=== PATIENT | male | born 1945 | race African-American/Black ===

== ENCOUNTER 2018-06-13 13:03 | Emergency (ER) | payer OTHER, MEDICAID ==
[~2018-06-13] VITALS: Ht 180.3 cm; Wt 90.7 kg
[~2018-06-13 13:03] MED LIST: ANUSOL-HC30 GM RC; IBUPROFEN600 MG ORAL; NKM; NORCO 5-325 TA1 EACH ORAL
[2018-06-13 13:16] VITALS: BP 133/81
--- NOTE | 2018-06-13 13:16 | NUR ---
ED Nurse Note: Pt came in from MD appt due to scrotal swelling x 3-4 days. No redness noted. Noted to have atrophy on the right side. No tenderness noted. No complaints of pain. No penile discharge. A + O x4. AMbulatory.
--- NOTE | 2018-06-13 13:31 | NUR ---
ED Nurse Note: Urine has been collected and sent to lab.
--- NOTE | 2018-06-13 13:37 | NUR ---
ED Nurse Note: wafer fab technician called about the order.
[2018-06-13 13:53] LABS: APPEARANCE,URINE VERY CLOUDY; BILIRUBIN, URINE NEGATIVE (NEGATIVE); GLUCOSE, URINE (UA) NEGATIVE (NEGATIVE); KETONES,URINE 1+ (NEGATIVE); LEUKOCYTE ESTERASE ,URINE 2+ (NEGATIVE); NITRITE,URINE POSITIVE (NEGATIVE); PH,URINE 6 (4.5-8.0); PROTEIN,URINE 1+ (NEGATIVE); UROBILINOGEN,URINE NORMAL MG/DL (0.0-1.0)
[2018-06-13 13:54] LABS: COLOR,URINE YELLOW
--- NOTE | 2018-06-13 13:54 | Emergency Room Report ---
History of Present Illness General Chief Complaint: Male Urogenital Problems Source: Patient Present Illness HPI 73-year-old male patient presents the ER complaining of testicular pain and swelling for the past 4 days. Reports swelling symptoms have been present for "a while" however they became painful with increasing intensity during the past 4 days. Denies dysuria. Reports history of BPH. Denies hematuria. Denies penile discharge pain. Denies penis pain. Denies fever, chest pain, shortness of breath. Denies other acute aggravating or relieving factors. states was at his physician's office earlier today and was told to come to the ER for imaging because he would not be able to have imaging done until next week. Denies recent sexual activity. Allergies: Coded Allergies: NO KNOWN DRUG ALLERGIES (Verified Allergy, Unknown, 04/04/15) Patient History Past Medical History: see triage record Reviewed Nursing Documentation: PMH: Agreed; PSxH: Agreed Nursing Documentation-PMH Past Medical History: No Stated History Review of Systems All Other Systems: negative except mentioned in HPI Physical Exam Vital Signs Date Time Temp Pulse Resp B/P (MAP) Pulse Ox O2 Delivery O2 Flow Rate FiO2 06/13/18 13:07 98.4 75 16 133/81 96 Room Air Sp02 EP Interpretation: reviewed, normal General Appearance: well appearing, no apparent distress, alert, GCS 15, non- toxic Head: normocephalic, atraumatic Eyes: bilateral eye normal inspection, bilateral eye PERRL ENT: hearing grossly normal, normal pharynx, no angioedema, normal voice, uvula midline, moist mucus membranes Neck: full range of motion Respiratory: lungs clear, normal breath sounds, no rhonchi, no respiratory distress, no accessory muscle use, no wheezing, speaking full sentences Cardiovascular #1: regular rate, rhythm, no edema Genitourinary: no CVA tenderness, penis normal, other - scrotal swelling, no erythema, no blue dot; "bag of worms: right sided; no hernia bilaterally Musculoskeletal: back normal, digits/nails normal, gait/station normal, normal range of motion, non-tender Neurologic: alert, oriented x3, responsive, motor strength/tone normal, sensory intact Medical Decision Making PA Attestation Dr. Garay is my supervising Physician whom patient management has been discussed with. Diagnostic Impression: Primary Impression: Orchitis Additional Impressions: Hydrocele Varicocele ER Course Pt. presents to the ED c/o testicular pain. Ddx considered but are not limited to testicular torsion, epididymitis, UTI, testicular cyst, varicocele, hydrocele, inguinal hernia, orchitis. Vital signs: are WNL, pt. is afebrile ER COURSE: Provided with Tylenol for pain. UA shows positive WBCS and nitrites likely infection. Likely orchitis. Testicular US shows bilateral hydrocele worse on the right side, right-sided varicocele, increased blood flow to the right side, no torsion per the chemistry laboratory technician. Follow-up with specialist. Follow with primary care provider. Discuss right-sided varicocele need for further imaging. Keep testicles elevated. ER precautions given. Discussed with Dr. Garay, will discharge patient home with Bactrim. Advised patient to discontinue medication if he begins to develop rash or skin findings consistent with SJS. DISCHARGE: At this time pt. is stable for d/c to home. Patient resting comfortably no acute distress, nontoxic-appearing, okay for outpatient follow-up. Will provide printed patient care instructions, and any necessary prescriptions. Care plan and follow up instructions have been discussed with the patient prior to discharge. Followup with tin whiz machine operator in 3 -5 days. Followup with urologist. Take medications as directed. Patient questions asked and answered. ER precautions given, patient instructed to return to ER immediately for any new or worsening of symptoms including but not limited to fever, nausea, vomiting, worsening of pain. - Please note that this Emergency Department Report was dictated using [employer] technology software, occasionally this can lead to erroneous entry secondary to interpretation by the dictation equipment. Labs Test 06/13/18 13:21 Urine Color Yellow Urine Appearance Very cloudy Urine pH 6 (4.5-8.0) Urine Specific [place] 1.020 (1.005-1.035) Urine Protein 1+ (NEGATIVE) Urine Glucose (UA) Negative (NEGATIVE) Urine Ketones 1+ (NEGATIVE) Urine Blood 1+ (NEGATIVE) Urine Nitrite Positive (NEGATIVE) Urine Bilirubin Negative (NEGATIVE) Urine Urobilinogen Normal MG/DL (0.0-1.0) Urine Leukocyte Esterase 2+ (NEGATIVE) Urine RBC 0-2 /HPF (0 - 0) Urine WBC 15-20 /HPF (0 - 0) Urine Squamous Epithelial Cells Few /LPF (NONE/OCC) Urine Bacteria Many /HPF (NONE) CT/MRI/US Diagnostic Results CT/MRI/US Diagnostic Results : Imaging Test Ordered: Testicular ultrasound Impression Per chemistry laboratory technician, large right-sided hydrocele and small hydrocele on left side, varicocele on right side, increased blood flow to right testes, bilateral epididymis normal Last Vital Signs Date Time Temp Pulse Resp B/P (MAP) Pulse Ox O2 Delivery O2 Flow Rate FiO2 06/13/18 13:16 98.4 75 16 133/81 96 Room Air Status: improved Disposition: HOME, SELF-CARE Condition: Stable Scripts Acetaminophen* (TYLENOL EXTRA STRENGTH*) 500 Mg Tablet 500 MG ORAL Q8H PRN for Prn Headache/Temp > 101, #30 TAB 0 Refills Prov: Hipolito Kramer 06/13/18 Trimethoprim/Sulfamethoxazole 160/800* (BACTRIM DS TABLET*) 1 Each Tablet 1 TAB ORAL TWICE A DAY for 10 Days, #20 TAB Prov: Hipolito Kramer 06/13/18 Patient Instructions: Hydrocele, Adult, Orchitis, Varicocele Additional Instructions: Followup with primary care provider in 3 -5 days. Discussed need for further abdominal imaging related to right-sided varicocele. Discussed referral to specialist. Followup with referral. Keep testicles elevated with a towel. Take medications as directed. Patient questions asked and answered. ER precautions given, patient instructed to return to ER immediately for any new or worsening of symptoms. Hipolito Kramer Jun 13, 2018 13:54
--- NOTE | 2018-06-13 14:06 | NUR ---
ED Nurse Note: Pt went down to get US.
--- NOTE | 2018-06-13 14:56 | NUR ---
ED Nurse Note: Pt came back from US.
--- NOTE | 2018-06-13 15:13 | Diagnostic Imaging Report ---
Indications: Scrotal pain and swelling x4 days, right testicular pain Technique: Grayscale and duplex images of the scrotum Comparison: none Findings:The right testicle measures for 0.4cm in length. Demonstrate somewhat striated parenchymal pattern. There is increased blood flow demonstrated as compared to the left testicle. The epididymal head is slightly prominent and hyperemic, although appears less hyperemic than the testicle. There is a right hydrocele with debris. There is right varicocele. The left testicle measures 3.8 cm in length. It demonstrates normal echogenicity and normal Doppler flow. Normal epididymis. There is a small hydrocele Impression: Findings compatible with right-sided orchitis Moderate right and small left hydroceles Negative for evidence of testicular torsion
[2018-06-13] MEDS ORDERED: TYLENOL EXTRA500 MG ORAL (15:15)
[2018-06-13] MEDS ORDERED: BACTRIM DS TAB1 EAC1 ORAL (15:15)
[2018-06-13 15:24] VITALS: BP 128/78
[2018-06-13 15:25] VITALS: BP 133/81
--- NOTE | 2018-06-13 15:25 | NUR ---
ED Nurse Note: Pt is clear to be discharged by ERMD. Discharge paper and prescription given, pt verbalized understanding of discharge instruction. Aox4, VSS. Wristband removed. Pt ambulated out with steady gait with all belongings.
--- NOTE | 2018-06-16 13:00 | Emergency Room Report ---
Physical Exam Vital Signs Date Time Temp Pulse Resp B/P (MAP) Pulse Ox O2 Delivery O2 Flow Rate FiO2 06/13/18 13:07 98.4 75 16 133/81 96 Room Air Medical Decision Making Diagnostic Impression: Primary Impression: Orchitis Additional Impressions: Varicocele Hydrocele ER Course . .Patient was noted to have positive urine culture for E. coli which is resistant to Bactrim. Prescription for Keflex was called into the patient's preferred pharmacy [facility] on [address]. Patient was advised to continue follow-up with urology. Last Vital Signs Date Time Temp Pulse Resp B/P (MAP) Pulse Ox O2 Delivery O2 Flow Rate FiO2 06/13/18 15:25 98.4 75 16 133/81 96 Room Air Disposition: HOME, SELF-CARE Condition: Stable Scripts Acetaminophen* (TYLENOL EXTRA STRENGTH*) 500 Mg Tablet 500 MG ORAL Q8H PRN for Prn Headache/Temp > 101, #30 TAB 0 Refills Prov: Hipolito Kramer.Lm 06/13/18 Trimethoprim/Sulfamethoxazole 160/800* (BACTRIM DS TABLET*) 1 Each Tablet 1 TAB ORAL TWICE A DAY for 10 Days, #20 TAB Prov: Hipolito Kramer 06/13/18 Referrals: NON PHYSICIAN Guicho Strickland M.D. Patient Instructions: Hydrocele, Adult, Varicocele, Orchitis Additional Instructions: Followup with primary care provider in 3 -5 days. Discussed need for further abdominal imaging related to right-sided varicocele. Discussed referral to specialist. Followup with referral. Keep testicles elevated with a towel. Take medications as directed. Discuss abx if begin to experience skin or rash symptoms. Patient questions asked and answered. ER precautions given, patient instructed to return to ER immediately for any new or worsening of symptoms. Joe Garay MD Jun 16, 2018 13:00
== END 2018-06-13 15:25 | disposition home or self-care (01) ==
LOC: EMR 13:46
DX: N45.2 Orchitis (principal); N43.3 Hydrocele, unspecified; I86.1 Scrotal varices
CPT/HCPCS: 76870; 81003; 87086; 87181; 99284